=== PATIENT | female | born 1945 | race Caucasian/White ===

== ENCOUNTER 2016-05-31 16:09 | Inpatient (IN) | payer MEDICARE, BC ==
[~2016-05-31] VITALS: Ht 162.6 cm; Wt 55.7 kg
[2016-05-31] MEDS ORDERED: DUONEB INH ONE ×2 (19:17)
[2016-05-31] MEDS ORDERED: AZITHROMYCIN 500 MG VIAL IV ONE (19:23)
[2016-05-31] MEDS ORDERED: CEFTRIAXONE 1 GM VIAL ONE (19:23)
[2016-05-31] MEDS ORDERED: SODIUM CHLORIDE 0.9% 100 ML IV ONE (19:24)
[2016-05-31] MEDS ORDERED: SODIUM CHLORIDE 0.9% 250 ML IV ONE (19:24)
[2016-05-31] MEDS ORDERED: METHYLPRED SOD SUCC 125 MG/2 ML VIAL ONE (19:24)
[2016-05-31] MEDS ORDERED: ACETAMINOPHEN 325 MG TAB ONE (20:09)
[2016-05-31] MEDS ORDERED: SODIUM CHLORIDE 0.9% 500 ML IV ONE (20:09)
[2016-05-31] MEDS ORDERED: ESOMEPRAZOLE 20 MG PO SCH (20:32)
[2016-05-31] MEDS: LEVOFLOXACIN 750 MG/150 ML 150 ML IV SCH (20:35)
[2016-05-31] MEDS ORDERED: ALU/MAG/SIM 30 ML UDC PO PRN (20:35)
[2016-05-31] MEDS ORDERED: SALINE FLUSH 10 ML FLUSH PRN (20:35)
[2016-05-31] MEDS: DUONEB INH SCH ×2 (20:35→23:34)
[2016-05-31] MEDS ORDERED: DEXTROSE 50% SYRINGE 50 ML IV PRN (20:35)
[2016-05-31] MEDS ORDERED: BISACODYL EC 5 MG TAB PO PRN (20:35)
[2016-05-31] MEDS ORDERED: ACETAMINOPHEN 325 MG TAB PO PRN (20:35)
[2016-05-31] MEDS ORDERED: GLUCAGON 1 MG VIAL IM PRN (20:35)
[2016-05-31] MEDS ORDERED: GUAIFEN/DM 10 ML UDC PO PRN (20:35)
[2016-05-31] MEDS ORDERED: PHARMACY TO DOSE VANCOMYCIN IV SCH (20:40)
[2016-05-31] MEDS: CLOBETASOL 0.05% TOPICAL SCH ×2 (21:00→23:31)
[2016-05-31] MEDS ORDERED: [UNRECOGNIZED DRUG - REMARK] XX SCH (21:45)
[2016-05-31 22:02] VITALS: BP_SYST 90; RESP 20; TEMP 98.6
[2016-05-31 22:04] VITALS: BMI 22.6
[2016-05-31] MEDS ORDERED: VANCOMYCIN 1,250 MG in SODIUM CHLORIDE 0.9% 250 ML IV ONE (22:30)
[2016-05-31] MEDS: SALINE FLUSH 10 ML FLUSH SCH (23:09)
[2016-05-31] MEDS: ENOXAPARIN 30 MG/0.3 ML SYR SUBQ SCH (23:11)
[2016-05-31] MEDS: EZETIMIBE 10 MG TAB PO SCH ×2 (23:12→23:34)
[2016-05-31] MEDS: SODIUM CHLORIDE 0.9% FLUSH BAG 500 ML IV SCH (23:12)
[2016-05-31] MEDS: METOPROLOL XL 50 MG TAB PO SCH (23:12)
[2016-05-31] MEDS: LISINOPRIL 20 MG TAB PO SCH (23:12)
[2016-05-31] MEDS: amLODIPine 5 MG TAB PO SCH (23:13)
[2016-05-31] MEDS: PRAVASTATIN 40 MG TAB PO SCH ×2 (23:15→23:34)
[2016-05-31] MEDS: LEVOTHYROXINE 0.05 MG TAB PO SCH (23:30)
[2016-05-31 23:35] VITALS: RESP 20
[2016-06-01] MEDS: METHYLPRED SOD SUCC 40 MG VIAL IV SCH ×3 (01:01→15:20)
[2016-06-01] MEDS: DUONEB INH SCH ×6 (02:22→23:46)
[2016-06-01 03:00] VITALS: BP_SYST 112; RESP 18; TEMP 97.5
[2016-06-01] MEDS: LEVOFLOXACIN 750 MG/150 ML 150 ML IV SCH (05:00)
[2016-06-01] MEDS: PANTOPRAZOLE 40 MG TAB PO SCH (06:20)
[2016-06-01] MEDS: LEVOTHYROXINE 0.05 MG TAB PO SCH (06:20)
[2016-06-01 07:30] VITALS: BP_SYST 107; RESP 16; TEMP 98
[2016-06-01] MEDS: SALINE FLUSH 10 ML FLUSH SCH ×2 (08:52→20:15)
[2016-06-01] MEDS: ASPIRIN 81 MG CHEW TAB PO SCH (08:53)
[2016-06-01] MEDS: amLODIPine 5 MG TAB PO SCH (08:53)
[2016-06-01] MEDS: ENOXAPARIN 30 MG/0.3 ML SYR SUBQ SCH (08:53)
[2016-06-01] MEDS: LISINOPRIL 20 MG TAB PO SCH (08:54)
[2016-06-01] MEDS: CLOBETASOL 0.05% TOPICAL SCH ×2 (09:39→20:16)
[2016-06-01 12:03] VITALS: BP_SYST 127; RESP 16; TEMP 99
[2016-06-01] MEDS: ALPRAZOLAM 0.25 MG TAB PO PRN ×2 (12:44→20:42)
[2016-06-01 16:22] VITALS: BP_SYST 119; RESP 16; TEMP 98.8
[2016-06-01 19:10] VITALS: BP_SYST 125; RESP 16; TEMP 97.6
[2016-06-01] MEDS: EZETIMIBE 10 MG TAB PO SCH (20:15)
[2016-06-01] MEDS: PRAVASTATIN 40 MG TAB PO SCH (20:15)
[2016-06-01] MEDS: METOPROLOL XL 50 MG TAB PO SCH (20:15)
[2016-06-01 23:00] VITALS: BP_SYST 120; RESP 16; TEMP 98.3
[2016-06-01] MEDS: VANCOMYCIN 1,000 MG in SODIUM CHLORIDE 0.9% 250 ML IV SCH (23:40)
[2016-06-02] VITALS (7 sets, daily range): BP systolic 109–129; RESP 16–20; TEMP 97.8–98.1
[2016-06-02] MEDS: METHYLPRED SOD SUCC 40 MG VIAL IV SCH ×2 (01:02→08:34)
[2016-06-02] MEDS: DUONEB INH SCH ×6 (02:52→23:10)
[2016-06-02] MEDS: SODIUM CHLORIDE 0.9% FLUSH BAG 500 ML IV SCH (03:43)
[2016-06-02] MEDS: PANTOPRAZOLE 40 MG TAB PO SCH (06:20)
[2016-06-02] MEDS: LEVOTHYROXINE 0.05 MG TAB PO SCH (06:20)
[2016-06-02] MEDS: SALINE FLUSH 10 ML FLUSH SCH ×2 (08:33→20:44)
[2016-06-02] MEDS: ASPIRIN 81 MG CHEW TAB PO SCH (08:34)
[2016-06-02] MEDS: ENOXAPARIN 30 MG/0.3 ML SYR SUBQ SCH (08:34)
[2016-06-02] MEDS: LISINOPRIL 20 MG TAB PO SCH (08:34)
[2016-06-02] MEDS: amLODIPine 5 MG TAB PO SCH (08:34)
[2016-06-02] MEDS: CLOBETASOL 0.05% TOPICAL SCH ×2 (08:35→20:47)
[2016-06-02] MEDS: NYSTATIN 500,000 UNITS/5 ML SUSP SWISH.SWAL SCH ×2 (17:43→20:45)
[2016-06-02] MEDS: METOPROLOL XL 50 MG TAB PO SCH (20:44)
[2016-06-02] MEDS: PRAVASTATIN 40 MG TAB PO SCH (20:44)
[2016-06-02] MEDS: EZETIMIBE 10 MG TAB PO SCH (20:44)
[2016-06-02] MEDS: ALPRAZOLAM 0.25 MG TAB PO PRN (21:08)
[2016-06-02] MEDS ORDERED: MISSING DOSE XX ONE (23:15)
[2016-06-02] MEDS: VANCOMYCIN 1,000 MG in SODIUM CHLORIDE 0.9% 250 ML IV SCH (23:47)
[2016-06-03] MEDS: DUONEB INH SCH ×6 (02:23→23:07)
[2016-06-03] MEDS ORDERED: MISSING DOSE XX ONE (05:40)
[2016-06-03] MEDS: LEVOTHYROXINE 0.05 MG TAB PO SCH (06:44)
[2016-06-03] MEDS: PANTOPRAZOLE 40 MG TAB PO SCH (06:44)
[2016-06-03] MEDS: SODIUM CHLORIDE 0.9% FLUSH BAG 500 ML IV SCH (06:44)
[2016-06-03 07:33] VITALS: BP_SYST 116; RESP 18; TEMP 98.2
[2016-06-03] MEDS: SALINE FLUSH 10 ML FLUSH SCH ×2 (07:52→20:52)
[2016-06-03] MEDS: LISINOPRIL 20 MG TAB PO SCH (07:54)
[2016-06-03] MEDS: ASPIRIN 81 MG CHEW TAB PO SCH (07:54)
[2016-06-03] MEDS: amLODIPine 5 MG TAB PO SCH (07:55)
[2016-06-03] MEDS: PREDNISONE 10 MG TAB PO SCH (07:55)
[2016-06-03] MEDS: ENOXAPARIN 30 MG/0.3 ML SYR SUBQ SCH (07:55)
[2016-06-03] MEDS: NYSTATIN 500,000 UNITS/5 ML SUSP SWISH.SWAL SCH ×5 (07:56→20:51)
[2016-06-03] MEDS: CLOBETASOL 0.05% TOPICAL SCH ×2 (07:57→21:03)
[2016-06-03 11:38] VITALS: BP_SYST 125; RESP 18; TEMP 98.5
[2016-06-03] MEDS ORDERED: VANCOMYCIN 1,000 MG in SODIUM CHLORIDE 0.9% 250 ML IV SCH (12:00)
[2016-06-03 15:45] VITALS: BP_SYST 117; RESP 18; TEMP 98.3
[2016-06-03 19:32] VITALS: BP_SYST 136; RESP 18; TEMP 99.5
[2016-06-03] MEDS: METOPROLOL XL 50 MG TAB PO SCH (20:51)
[2016-06-03] MEDS: ALPRAZOLAM 0.25 MG TAB PO PRN (20:51)
[2016-06-03] MEDS: PRAVASTATIN 40 MG TAB PO SCH (20:51)
[2016-06-03] MEDS: EZETIMIBE 10 MG TAB PO SCH (20:51)
[2016-06-03] MEDS: MAG HYDROX 30 ML UDC PO PRN (21:16)
[2016-06-03] MEDS: Docosanol 10% Cream 2 Gm TOPICAL SCH (22:00)
[2016-06-03] MEDS ORDERED: ACYCLOVIR 5% OINT 15 GM TOPICAL SCH (22:00)
[2016-06-03] MEDS ORDERED: Docosanol 10% Cream 2 Gm TOPICAL SCH (22:00)
[2016-06-03 22:48] VITALS: BP_SYST 133; RESP 18; TEMP 98.7
[2016-06-04] MEDS: DUONEB INH SCH ×4 (03:28→14:16)
[2016-06-04] MEDS: SODIUM CHLORIDE 0.9% FLUSH BAG 500 ML IV SCH (04:02)
[2016-06-04] MEDS: Docosanol 10% Cream 2 Gm TOPICAL SCH ×4 (04:04→18:08)
[2016-06-04] MEDS: PANTOPRAZOLE 40 MG TAB PO SCH (04:06)
[2016-06-04] MEDS: LEVOTHYROXINE 0.05 MG TAB PO SCH (04:06)
[2016-06-04 04:08] VITALS: BP_SYST 132; RESP 18; TEMP 97.6
[2016-06-04 07:45] VITALS: BP_SYST 116; RESP 20; TEMP 98.3
[2016-06-04] MEDS: SALINE FLUSH 10 ML FLUSH SCH ×2 (07:59→21:16)
[2016-06-04] MEDS: LISINOPRIL 20 MG TAB PO SCH (08:00)
[2016-06-04] MEDS: PREDNISONE 10 MG TAB PO SCH (08:00)
[2016-06-04] MEDS: ASPIRIN 81 MG CHEW TAB PO SCH (08:00)
[2016-06-04] MEDS: NYSTATIN 500,000 UNITS/5 ML SUSP SWISH.SWAL SCH ×4 (08:01→21:16)
[2016-06-04] MEDS: amLODIPine 5 MG TAB PO SCH (08:01)
[2016-06-04] MEDS: ENOXAPARIN 30 MG/0.3 ML SYR SUBQ SCH (08:01)
[2016-06-04] MEDS: CLOBETASOL 0.05% TOPICAL SCH ×2 (08:02→21:18)
[2016-06-04 11:51] VITALS: BP_SYST 122; RESP 20; TEMP 98
[2016-06-04] MEDS: NEB-XOPENEX 1.25 MG/3 ML INH SCH ×2 (15:05→19:04)
[2016-06-04 15:07] VITALS: BP_SYST 117; RESP 18; TEMP 98.1
[2016-06-04] MEDS: NEB-BROVANA 15 MCG/2 ML INH SCH (19:04)
[2016-06-04 19:40] VITALS: BP_SYST 120; RESP 18; TEMP 97.2
[2016-06-04] MEDS: PRAVASTATIN 40 MG TAB PO SCH (21:16)
[2016-06-04] MEDS: METOPROLOL XL 50 MG TAB PO SCH (21:16)
[2016-06-04] MEDS: METOPROLOL XL 25 MG TAB PO SCH (21:17)
[2016-06-04] MEDS: EZETIMIBE 10 MG TAB PO SCH (21:17)
[2016-06-04] MEDS: ALPRAZOLAM 0.25 MG TAB PO PRN (21:17)
[2016-06-05 00:28] VITALS: BP_SYST 124; RESP 18; TEMP 97.9
[2016-06-05] MEDS: Docosanol 10% Cream 2 Gm TOPICAL SCH ×6 (00:39→23:14)
[2016-06-05] MEDS: SODIUM CHLORIDE 0.9% FLUSH BAG 500 ML IV SCH (05:50)
[2016-06-05] MEDS: LEVOTHYROXINE 0.05 MG TAB PO SCH (06:03)
[2016-06-05] MEDS: PANTOPRAZOLE 40 MG TAB PO SCH (06:03)
[2016-06-05] MEDS: NEB-XOPENEX 1.25 MG/3 ML INH SCH ×3 (06:32→19:08)
[2016-06-05] MEDS: NEB-BROVANA 15 MCG/2 ML INH SCH ×2 (06:37→19:08)
[2016-06-05 07:15] VITALS: BP_SYST 117; RESP 16; TEMP 98.1
[2016-06-05] MEDS: MAG HYDROX 30 ML UDC PO PRN (08:24)
[2016-06-05] MEDS: SALINE FLUSH 10 ML FLUSH SCH ×2 (08:25→23:13)
[2016-06-05] MEDS: PREDNISONE 10 MG TAB PO SCH (08:26)
[2016-06-05] MEDS: ASPIRIN 81 MG CHEW TAB PO SCH (08:26)
[2016-06-05] MEDS: amLODIPine 5 MG TAB PO SCH (08:26)
[2016-06-05] MEDS: NYSTATIN 500,000 UNITS/5 ML SUSP SWISH.SWAL SCH ×4 (08:27→23:12)
[2016-06-05] MEDS: ENOXAPARIN 30 MG/0.3 ML SYR SUBQ SCH (08:27)
[2016-06-05] MEDS: LISINOPRIL 20 MG TAB PO SCH (08:27)
[2016-06-05] MEDS: CLOBETASOL 0.05% TOPICAL SCH ×2 (08:28→20:52)
[2016-06-05 10:55] VITALS: BP_SYST 118; RESP 18; TEMP 98.4
[2016-06-05 15:44] VITALS: BP_SYST 114; RESP 18; TEMP 97.3
[2016-06-05 19:24] VITALS: BP_SYST 128; RESP 18; TEMP 98.5
[2016-06-05] MEDS: PRAVASTATIN 40 MG TAB PO SCH (23:11)
[2016-06-05] MEDS: EZETIMIBE 10 MG TAB PO SCH (23:12)
[2016-06-05] MEDS: METOPROLOL XL 25 MG TAB PO SCH (23:12)
[2016-06-05] MEDS: ALPRAZOLAM 0.25 MG TAB PO PRN (23:12)
[2016-06-05] MEDS: METOPROLOL XL 50 MG TAB PO SCH (23:12)
[2016-06-05 23:21] VITALS: BP_SYST 141; RESP 18; TEMP 98.3
[2016-06-06 04:21] VITALS: BP_SYST 131; RESP 18; TEMP 98.5
[2016-06-06] MEDS: SODIUM CHLORIDE 0.9% FLUSH BAG 500 ML IV SCH (06:10)
[2016-06-06] MEDS: Docosanol 10% Cream 2 Gm TOPICAL SCH ×5 (06:10→21:27)
[2016-06-06] MEDS: PANTOPRAZOLE 40 MG TAB PO SCH (06:42)
[2016-06-06] MEDS: LEVOTHYROXINE 0.05 MG TAB PO SCH (06:42)
[2016-06-06] MEDS: NEB-BROVANA 15 MCG/2 ML INH SCH ×2 (07:43→19:40)
[2016-06-06] MEDS: NEB-XOPENEX 1.25 MG/3 ML INH SCH ×3 (07:43→19:40)
[2016-06-06 07:55] VITALS: BP_SYST 117; RESP 18; TEMP 97.7
[2016-06-06] MEDS: SALINE FLUSH 10 ML FLUSH SCH ×2 (08:00→21:24)
[2016-06-06] MEDS: NYSTATIN 500,000 UNITS/5 ML SUSP SWISH.SWAL SCH ×4 (08:59→21:23)
[2016-06-06] MEDS: PREDNISONE 10 MG TAB PO SCH (08:59)
[2016-06-06] MEDS: ASPIRIN 81 MG CHEW TAB PO SCH (08:59)
[2016-06-06] MEDS: CLOBETASOL 0.05% TOPICAL SCH ×2 (09:00→21:26)
[2016-06-06] MEDS: amLODIPine 5 MG TAB PO SCH (09:00)
[2016-06-06] MEDS: LISINOPRIL 20 MG TAB PO SCH (09:00)
[2016-06-06] MEDS: ENOXAPARIN 30 MG/0.3 ML SYR SUBQ SCH (09:01)
[2016-06-06 11:12] VITALS: BP_SYST 142; RESP 18; TEMP 98.1
[2016-06-06] MEDS ORDERED: NEPHROCAPS PO ONE (13:17)
[2016-06-06] MEDS: NYSTATIN SUSP FOR CPD 120 ML, DIPHENHYDRAMINE (FOR COMPOUND) 120 ML, HYDROCORT SOD SUC ... SWISH.SWAL SCH ×9 (14:53→21:23)
[2016-06-06 16:35] VITALS: BP_SYST 120; RESP 18; TEMP 97.7
[2016-06-06 19:54] VITALS: BP_SYST 127; RESP 18; TEMP 97.9
[2016-06-06] MEDS: NEPHROCAPS PO SCH (21:24)
[2016-06-06] MEDS: METOPROLOL XL 25 MG TAB PO SCH (21:24)
[2016-06-06] MEDS: PRAVASTATIN 40 MG TAB PO SCH (21:24)
[2016-06-06] MEDS: EZETIMIBE 10 MG TAB PO SCH (21:25)
[2016-06-06] MEDS: METOPROLOL XL 50 MG TAB PO SCH (21:38)
[2016-06-06] MEDS: ALPRAZOLAM 0.25 MG TAB PO PRN (21:38)
[2016-06-06 23:09] VITALS: BP_SYST 109; RESP 18; TEMP 98.3
[2016-06-07] VITALS (7 sets, daily range): BP systolic 110–126; RESP 18; TEMP 97.9–98.1; Ht 162.6 cm; Wt 55.7 kg
[2016-06-07] MEDS: PANTOPRAZOLE 40 MG TAB PO SCH (06:01)
[2016-06-07] MEDS: LEVOTHYROXINE 0.05 MG TAB PO SCH (06:01)
[2016-06-07] MEDS: Docosanol 10% Cream 2 Gm TOPICAL SCH ×5 (06:02→21:06)
[2016-06-07] MEDS: SODIUM CHLORIDE 0.9% FLUSH BAG 500 ML IV SCH (06:03)
[2016-06-07] MEDS: NEB-BROVANA 15 MCG/2 ML INH SCH ×2 (08:12→18:32)
[2016-06-07] MEDS: PREDNISONE 10 MG TAB PO SCH (08:45)
[2016-06-07] MEDS ORDERED: MISSING DOSE XX ONE (08:45)
[2016-06-07] MEDS: ASPIRIN 81 MG CHEW TAB PO SCH (08:45)
[2016-06-07] MEDS: NEPHROCAPS PO SCH ×2 (08:46→21:07)
[2016-06-07] MEDS: amLODIPine 5 MG TAB PO SCH (08:46)
[2016-06-07] MEDS: LISINOPRIL 20 MG TAB PO SCH (08:46)
[2016-06-07] MEDS: NYSTATIN 500,000 UNITS/5 ML SUSP SWISH.SWAL SCH ×4 (08:47→21:05)
[2016-06-07] MEDS: NYSTATIN SUSP FOR CPD 120 ML, DIPHENHYDRAMINE (FOR COMPOUND) 120 ML, HYDROCORT SOD SUC ... SWISH.SWAL SCH ×12 (08:47→21:05)
[2016-06-07] MEDS: ENOXAPARIN 30 MG/0.3 ML SYR SUBQ SCH (08:47)
[2016-06-07] MEDS: CLOBETASOL 0.05% TOPICAL SCH ×2 (08:49→21:07)
[2016-06-07] MEDS: SALINE FLUSH 10 ML FLUSH SCH ×2 (09:35→20:08)
[2016-06-07] MEDS: NEB-XOPENEX 1.25 MG/3 ML INH SCH ×3 (10:45→18:33)
[2016-06-07] MEDS: EZETIMIBE 10 MG TAB PO SCH (21:07)
[2016-06-07] MEDS: METOPROLOL XL 25 MG TAB PO SCH (21:08)
[2016-06-07] MEDS: PRAVASTATIN 40 MG TAB PO SCH (21:10)
[2016-06-07] MEDS: ALPRAZOLAM 0.25 MG TAB PO PRN (22:55)
[2016-06-08 04:17] VITALS: BP_SYST 126; RESP 18; TEMP 98.3
[2016-06-08] MEDS: SODIUM CHLORIDE 0.9% FLUSH BAG 500 ML IV SCH (06:05)
[2016-06-08] MEDS: LEVOTHYROXINE 0.05 MG TAB PO SCH (06:06)
[2016-06-08] MEDS: Docosanol 10% Cream 2 Gm TOPICAL SCH ×5 (06:06→21:07)
[2016-06-08] MEDS: PANTOPRAZOLE 40 MG TAB PO SCH (06:06)
[2016-06-08] MEDS: NEB-XOPENEX 1.25 MG/3 ML INH SCH ×3 (07:25→19:10)
[2016-06-08] MEDS: NEB-BROVANA 15 MCG/2 ML INH SCH ×2 (07:25→19:10)
[2016-06-08 07:38] VITALS: BP_SYST 123; RESP 18; TEMP 98.3
[2016-06-08] MEDS ORDERED: KCL 20 MEQ/15 ML UDC PO ONE (08:50)
[2016-06-08] MEDS: NYSTATIN 500,000 UNITS/5 ML SUSP SWISH.SWAL SCH ×4 (09:21→21:07)
[2016-06-08] MEDS: NYSTATIN SUSP FOR CPD 120 ML, DIPHENHYDRAMINE (FOR COMPOUND) 120 ML, HYDROCORT SOD SUC ... SWISH.SWAL SCH ×12 (09:21→21:07)
[2016-06-08] MEDS: SALINE FLUSH 10 ML FLUSH SCH ×2 (09:21→21:10)
[2016-06-08] MEDS: ENOXAPARIN 30 MG/0.3 ML SYR SUBQ SCH (09:22)
[2016-06-08] MEDS: ASPIRIN 81 MG CHEW TAB PO SCH (09:22)
[2016-06-08] MEDS: LISINOPRIL 20 MG TAB PO SCH (09:23)
[2016-06-08] MEDS: amLODIPine 5 MG TAB PO SCH (09:23)
[2016-06-08] MEDS: NEPHROCAPS PO SCH ×2 (09:23→21:05)
[2016-06-08] MEDS: PREDNISONE 10 MG TAB PO SCH (09:23)
[2016-06-08] MEDS: CLOBETASOL 0.05% TOPICAL SCH ×2 (09:31→21:07)
[2016-06-08 11:20] VITALS: BP_SYST 123; RESP 18; TEMP 98.1
[2016-06-08] MEDS ORDERED: MISSING DOSE XX ONE (13:05)
[2016-06-08 15:03] VITALS: BP_SYST 115; RESP 18; TEMP 97.9
[2016-06-08] MEDS ORDERED: KCL CR 20 MEQ TAB PO ONE (18:05)
[2016-06-08 19:29] VITALS: BP_SYST 129; RESP 18; TEMP 98.1
[2016-06-08] MEDS: PRAVASTATIN 40 MG TAB PO SCH (21:05)
[2016-06-08] MEDS: METOPROLOL XL 25 MG TAB PO SCH (21:06)
[2016-06-08] MEDS: EZETIMIBE 10 MG TAB PO SCH (21:06)
[2016-06-08] MEDS: ALPRAZOLAM 0.25 MG TAB PO PRN (22:25)
[2016-06-09] VITALS (8 sets, daily range): BP systolic 109–136; RESP 16–20; TEMP 97.7–98.2
[2016-06-09] MEDS: SODIUM CHLORIDE 0.9% FLUSH BAG 500 ML IV SCH (03:21)
[2016-06-09] MEDS: NEB-XOPENEX 1.25 MG/3 ML INH SCH ×3 (06:14→18:30)
[2016-06-09] MEDS: NEB-BROVANA 15 MCG/2 ML INH SCH (06:14)
[2016-06-09] MEDS: LEVOTHYROXINE 0.05 MG TAB PO SCH (06:14)
[2016-06-09] MEDS: PANTOPRAZOLE 40 MG TAB PO SCH (06:14)
[2016-06-09] MEDS: Docosanol 10% Cream 2 Gm TOPICAL SCH ×4 (06:15→18:00)
[2016-06-09] MEDS: SALINE FLUSH 10 ML FLUSH SCH (08:29)
[2016-06-09] MEDS: ENOXAPARIN 30 MG/0.3 ML SYR SUBQ SCH (08:30)
[2016-06-09] MEDS: PREDNISONE 10 MG TAB PO SCH (08:30)
[2016-06-09] MEDS: LISINOPRIL 20 MG TAB PO SCH (08:31)
[2016-06-09] MEDS: amLODIPine 5 MG TAB PO SCH (08:31)
[2016-06-09] MEDS: NEPHROCAPS PO SCH (08:31)
[2016-06-09] MEDS: NYSTATIN SUSP FOR CPD 120 ML, DIPHENHYDRAMINE (FOR COMPOUND) 120 ML, HYDROCORT SOD SUC ... SWISH.SWAL SCH ×9 (08:31→17:20)
[2016-06-09] MEDS: ASPIRIN 81 MG CHEW TAB PO SCH (08:31)
[2016-06-09] MEDS: NYSTATIN 500,000 UNITS/5 ML SUSP SWISH.SWAL SCH ×3 (08:31→17:20)
[2016-06-09] MEDS: CLOBETASOL 0.05% TOPICAL SCH (08:32)
[2016-06-09] MEDS ORDERED: KCL CR 20 MEQ TAB PO SCH (09:00)
[2016-06-09] MEDS ORDERED: MISSING DOSE XX ONE (10:15)
== END 2016-06-09 18:44 | disposition home or self-care (01) | DRG 190 ==
LOC: ENRESERVTM → ENRESERVDT → ER 16:09 → ENPENDDIS 20:32 → EMR 20:32 → PCU 21:38 → 4NT 06-02 19:56
PROVIDERS: ADMIT Internal Medicine; ATTEND Internal Medicine
DX: J44.0 Chronic obstructive pulmonary disease with (acute) lower respiratory infection (principal); J96.21 Acute and chronic respiratory failure with hypoxia; J18.9 Pneumonia, unspecified organism; J96.11 Chronic respiratory failure with hypoxia; B37.0 Candidal stomatitis; I25.5 Ischemic cardiomyopathy; I25.10 Atherosclerotic heart disease of native coronary artery without angina pectoris; B00.1 Herpesviral vesicular dermatitis; R00.0 Tachycardia, unspecified; I10 Essential (primary) hypertension; K21.9 Gastro-esophageal reflux disease without esophagitis; E03.9 Hypothyroidism, unspecified; E78.5 Hyperlipidemia, unspecified; R91.8 Other nonspecific abnormal finding of lung field; Z85.3 Personal history of malignant neoplasm of breast; Z90.13 Acquired absence of bilateral breasts and nipples; Z79.82 Long term (current) use of aspirin; Z87.891 Personal history of nicotine dependence
CPT/HCPCS: 36415; 71010; 71250; 74230; 80048; 80053; 80202; 81001; 82553; 82947; 83605; 83735; 83880; 84439; 84443; 84484; 85025; 85610; 85652; 85730; 86141; 87040; 87081; 87804; 93005; 94640; 94799; 96361; 96365; 96367; 96375; 99223; 99231; 99232; 99233; 99238